=== PATIENT | male | born 1955 | race Hispanic/Latino ===

== ENCOUNTER 2022-09-01 20:28 | Emergency (ER) | payer MEDICARE ==
[~2022-09-01] VITALS: Ht 193 cm; Wt 79.4 kg
[2022-09-01] MEDS ORDERED: MEDROL4 M2 PO (20:49)
[2022-09-01] MEDS ORDERED: METHYLPREDNISOLONE SOD SUCC 125 MG/2ML VIAL IM ONE (21:00)
== END 2022-09-01 20:52 | disposition home or self-care (01) ==
LOC: ER 20:39
DX: L50.9 Urticaria, unspecified (principal); I10 Essential (primary) hypertension; E78.5 Hyperlipidemia, unspecified
CPT/HCPCS: 99282; J2930

== ENCOUNTER 2023-01-19 05:17 | Emergency (ER) | payer MEDICARE ==
[~2023-01-19] VITALS: Ht 193 cm; Wt 79.4 kg
[~2023-01-19 05:17] MED LIST: MEDROL4 M2 PO
[2023-01-19] MEDS ORDERED: ACETAMINOPHEN 325 MG TAB PO STA (05:31)
[2023-01-19] MEDS ORDERED: KETOROLAC TROMETHAMINE 60 MG/2 ML VIAL IM ONE (05:45)
[2023-01-19 06:27] LABS: CLARITY,URINE CLOUDY (CLEAR); COLOR,URINE BROWN (YELLOW); KETONES,URINE NEGATIVE (NEGATIVE); LEUKOCYTE ESTERASE ,URINE LARGE (NEGATIVE); NITRITE,URINE POSITIVE (NEGATIVE); PROTEIN,URINE DIPSTICK >=300 (NEGATIVE); URINE UROBILINOGEN 1 mg/dL (0.2 - 1)
[2023-01-19] MEDS ORDERED: CEFDINIR300 MG PO (06:40)
[2023-01-19 06:44] LABS: BACTERIA,URINE MODERATE /HPF; RBC,URINE >50 /HPF (0-5)
[2023-01-19 06:46] LABS: EPITHELIAL CELLS,URINE RARE /LPF; TRANSITIONAL EPI CELLS,URINE RARE; WBC,URINE (MAN) 21-50 /HPF (0-5)
[2023-01-19 07:21] VITALS: BP 110/65; O2SAT 100
== END 2023-01-19 07:20 | disposition home or self-care (01) ==
LOC: ER 05:25
DX: R50.9 Fever, unspecified (principal); N30.91 Cystitis, unspecified with hematuria; I10 Essential (primary) hypertension; E78.5 Hyperlipidemia, unspecified; M10.9 Gout, unspecified
CPT/HCPCS: 74176; 81001; 87086; 87186; 99283; J1885